=== PATIENT | male | born 1990 | race Caucasian/White ===

== ENCOUNTER 2018-11-15 19:27 | Emergency (ER) | payer OTHER | END 2018-11-15 22:11 | disposition other institution (70) | LOC: ED 19:27 | DX: Z02.89 Encounter for other administrative examinations (principal) ==

== ENCOUNTER 2018-11-15 19:27 | Emergency (ER) | payer SELFPAY ==
[~2018-11-15] VITALS: Ht 167.6 cm; Wt 90.7 kg
[2018-11-15 19:45] VITALS: Ht 167.6 cm; Wt 90.7 kg
[2018-11-15 22:11] VITALS: BP 147/79
== END 2018-11-15 22:11 | disposition other institution (70) ==
LOC: ED 19:27
DX: S13.4XXA Sprain of ligaments of cervical spine, initial encounter (principal); S20.219A Contusion of unspecified front wall of thorax, initial encounter; S30.811A Abrasion of abdominal wall, initial encounter; S50.312A Abrasion of left elbow, initial encounter; Z88.6 Allergy status to analgesic agent; V43.52XA Car driver injured in collision with other type car in traffic accident, initial encounter; Y93.I9 Activity, other involving external motion; Y92.488 Other paved roadways as the place of occurrence of the external cause; Y99.8 Other external cause status